=== PATIENT | female | born 2000 | race Caucasian/White ===

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

== ENCOUNTER 2022-09-16 20:09 | Emergency (ER) | payer BC ==
[2022-09-16] MEDS ORDERED: Sodium Chloride 0.9% 10 ML Syringe FLUSH PRN (20:21)
[2022-09-16] MEDS: Lactated Ringers 1,000 ML IV ONE (20:30)
[2022-09-16] MEDS: Ondansetron 4 MG/2 ML SDV IVPUSH ONE (20:30)
[2022-09-16] MEDS: Prochlorperazine 10 MG/2 ML SDV IV ONE (21:10)
[2022-09-16] MEDS: Take Home: Ondansetron 4 MG Tab.DIS, 5 Tab Pack PO ONE (21:45)
[2022-09-16 22:37] VITALS: BP 115/72; PULSE 91
== END 2022-09-16 21:48 | disposition home or self-care (01) ==
LOC: VM.ED 20:09
DX: K52.9 Noninfective gastroenteritis and colitis, unspecified (principal)
CPT/HCPCS: 96361; 96374; 96375; 99283-25; J0780; J2405; J7120; Q0162